=== PATIENT | female | born 1980 | race Caucasian/White ===

== ENCOUNTER 2018-09-25 05:36 | Inpatient (IN) | payer MEDICAID ==
[2018-09-25] MEDS ORDERED: OXYTOCIN 30 UNITS/LR 500 ML IV ×3 (06:30→10:00)
[2018-09-25] MEDS ORDERED: MISOPROSTOL 200 MCG TAB PR ×2 (06:30→10:00)
[2018-09-25] MEDS ORDERED: CARBOPROST 250 MCG INJ IM ×2 (06:30→10:00)
[2018-09-25] MEDS ORDERED: METHYLERGONOVINE 0.2 MG INJ IM ×2 (06:30→10:00)
[2018-09-25] MEDS: LACTATED RINGER'S 1,000 ML IV ×3 (06:47→07:34)
[2018-09-25 07:09] LABS: ADD MAN DIFF? NO
[2018-09-25 07:24] LABS: BASOPHILS % 0.3 % (0.0-2.0); EOSINOPHILS # 0.1 10^3/ul (0.0-0.5); EOSINOPHILS % 0.9 % (0.0-7.0); HEMATOCRIT 32.5 % (37.0-47.0); HEMOGLOBIN 10.2 g/dl (12.0-16.0); LYMPHOCYTES # 2.2 10^3/ul (0.8-2.9); LYMPHOCYTES % 18.4 % (15.0-51.0); MEAN CORPUSCULAR HGB CONC 31.4 g/dl (32.0-37.0); MEAN CORPUSCULAR VOLUME 82.9 fl (82.0-101.0); MEAN PLATELET VOLUME 9.1 fl (7.4-10.4); MONOCYTE # 0.9 10^3/ul (0.3-0.9); MONOCYTES % 7.2 % (0.0-11.0); NEUTROPHIL # 8.5 10^3/ul (1.6-7.5); NEUTROPHILS % 71.9 % (39.0-77.0); PLATELET COUNT 402 10^3/UL (140-415); RED BLOOD COUNT 3.92 10^6/ul (4.20-5.40); RED CELL DISTRIBUTION WIDTH 16.1 % (11.5-14.5)
[2018-09-25 07:24] LABS: WHITE BLOOD COUNT 11.9 10^3/ul (4.8-10.8)
[2018-09-25 07:34] LABS: INR 0.88; PT RATIO 0.9
[2018-09-25 07:35] LABS: PARTIAL THROMBOPLASTIN TIME 25.2 Sec (23.0-35.0)
[2018-09-25] MEDS: METOCLOPRAMIDE 10 MG INJ IV (07:39)
[2018-09-25] MEDS: FAMOTIDINE 20 MG INJ IV (07:39)
[2018-09-25] MEDS: CITRIC ACID/NA CITRATE 30 ML CUP PO (07:39)
[2018-09-25] MEDS ORDERED: morphine SULFATE/PF (10 MG/10 ML) INJ (08:20)
[2018-09-25 08:44] LABS: HEPATITIS B SURFACE ANTIGEN NEGATIVE (NEGATIVE)
[2018-09-25] MEDS ORDERED: ONDANSETRON 4 MG INJ (08:55)
[2018-09-25] MEDS ORDERED: PHENYLephrine (100 MCG/ML) 10ML SYG (08:56)
[2018-09-25] MEDS ORDERED: MEPERIDINE 25 MG INJ IV (09:00)
[2018-09-25] MEDS ORDERED: DIPHENHYDRAMINE 50 MG INJ IV ×2 (09:00→10:30)
[2018-09-25] MEDS ORDERED: ONDANSETRON 4 MG INJ IV ×2 (09:00→10:30)
[2018-09-25] MEDS ORDERED: HYDROmorphONE 1 MG/5 ML IV SYRINGE IV ×3 (09:00)
[2018-09-25] MEDS ORDERED: KETOROLAC 30 MG INJ IV (09:00)
[2018-09-25] MEDS ORDERED: EPHEDrine SULFATE 50 MG/5 ML SYG IV (09:00)
[2018-09-25] MEDS ORDERED: FENTAnyl 50 MCG/ML VIAL IV ×3 (09:00)
[2018-09-25] MEDS ORDERED: PROCHLORPERAZINE 10 MG INJ IV (09:00)
[2018-09-25] MEDS: CEFAZOLIN 2 GM/50 ML (PMX) 50 ML IVPB ×3 (09:24→18:00)
[2018-09-25] MEDS: AZITHROMYCIN 500MG/NS (PMX) 250 ML IV (09:24)
[2018-09-25] MEDS ORDERED: OXYCODONE/ACETAMINOPHEN (5/325) TAB PO (10:00)
[2018-09-25] MEDS ORDERED: NACL 0.9% 3 ML SYG IV (10:00)
[2018-09-25] MEDS ORDERED: ZOLPIDEM 5 MG TAB PO (10:30)
[2018-09-25] MEDS ORDERED: NALOXONE (0.4 MG/ML) INJ IV (10:30)
[2018-09-25] MEDS ORDERED: HYDROmorphONE 0.5 MG/0.5 ML SYG IV ×2 (10:30)
[2018-09-25] MEDS: OXYTOCIN 30 UNITS/LR 500 ML IV ×2 (11:18→14:39)
[2018-09-25] MEDS: IBUPROFEN 800 MG TAB PO ×2 (14:00→22:00)
[2018-09-25 17:21] LABS: RAPID PLASMA REAGIN NONREACTIVE (NR)
[2018-09-25] MEDS: LANOLIN HPA 1 PKT TOP (17:59)
[2018-09-25] MEDS: KETOROLAC 30 MG INJ IV (20:59)
[2018-09-26] MEDS: OXYTOCIN 30 UNITS/LR 500 ML IV (01:06)
[2018-09-26] MEDS: CEFAZOLIN 2 GM/50 ML (PMX) 50 ML IVPB (02:42)
[2018-09-26] MEDS: IBUPROFEN 800 MG TAB PO ×3 (06:00→21:37)
[2018-09-26] MEDS: KETOROLAC 30 MG INJ IV (08:18)
[2018-09-26 08:47] LABS: ADD MAN DIFF? NO
[2018-09-26 08:55] LABS: BASOPHILS % 0.2 % (0.0-2.0); EOSINOPHILS # 0.1 10^3/ul (0.0-0.5); EOSINOPHILS % 0.4 % (0.0-7.0); HEMATOCRIT 27.7 % (37.0-47.0); LYMPHOCYTES # 1.5 10^3/ul (0.8-2.9); LYMPHOCYTES % 9.9 % (15.0-51.0); MEAN CORPUSCULAR HEMOGLOBIN 26.5 pg (29.0-33.0); MEAN CORPUSCULAR HGB CONC 32.5 g/dl (32.0-37.0); MEAN CORPUSCULAR VOLUME 81.7 fl (82.0-101.0); MEAN PLATELET VOLUME 9.3 fl (7.4-10.4); MONOCYTE # 0.8 10^3/ul (0.3-0.9); NEUTROPHIL # 12.7 10^3/ul (1.6-7.5); PLATELET COUNT 354 10^3/UL (140-415); RED BLOOD COUNT 3.39 10^6/ul (4.20-5.40); RED CELL DISTRIBUTION WIDTH 16.1 % (11.5-14.5)
[2018-09-26 08:55] LABS: WHITE BLOOD COUNT 15.1 10^3/ul (4.8-10.8)
[2018-09-26] MEDS ORDERED: PETROLATUM 5 GM OINT TOP (13:53)
[2018-09-26] MEDS: FERROUS SULFATE (EC) 325 MG TAB PO (21:36)
[2018-09-27] MEDS: IBUPROFEN 800 MG TAB PO ×3 (05:54→21:35)
[2018-09-27] MEDS: FERROUS SULFATE (EC) 325 MG TAB PO ×2 (08:33→21:35)
[2018-09-27] MEDS: OXYCODONE/ACETAMINOPHEN (5/325) TAB PO (10:54)
[2018-09-28] MEDS: IBUPROFEN 800 MG TAB PO ×2 (05:29→12:23)
[2018-09-28] MEDS: FERROUS SULFATE (EC) 325 MG TAB PO (09:20)
== END 2018-09-28 14:41 | disposition home or self-care (01) | DRG 785 ==
LOC: L-D 05:36 → PP1 15:35
PROVIDERS: Obstetrics & Gynecology
PROC: 10D00Z1 Extraction of Products of Conception, Low, Open Approach (ICD-10-PCS; principal; 2018-09-25 07:30)
PROC: 0UL70ZZ Occlusion of Bilateral Fallopian Tubes, Open Approach (ICD-10-PCS; 2018-09-25 07:30)
DX: O65.5 Obstructed labor due to abnormality of maternal pelvic organs (principal); O34.211 Maternal care for low transverse scar from previous cesarean delivery; Z3A.39 39 weeks gestation of pregnancy; Z37.0 Single live birth; Z30.2 Encounter for sterilization
CPT/HCPCS: 85025; 85610; 85730; 86592; 86850; 86900; 86901; 87340; 88302; 99464